=== PATIENT | female | born 1960 | race Caucasian/White ===

== ENCOUNTER 2018-04-14 14:12 | Outpatient (CLI) | payer MEDICAID ==
[2018-04-14] MEDS ORDERED: fentaNYL 100 MCG/2 ML INJ ONE (15:13)
[2018-04-14] MEDS ORDERED: FLUMAZENIL 0.5 MG/5 ML MDV IVP ONE (15:13)
[2018-04-14] MEDS ORDERED: MIDAZOLAM 2 MG/2 ML VIAL ONE (15:13)
[2018-04-14] MEDS ORDERED: NALOXONE HCL 0.4 MG/ML INJ ONE (15:13)
[2018-04-14] MEDS ORDERED: fentaNYL 100 MCG/2 ML INJ IVP PRN (15:16)
[2018-04-14] MEDS ORDERED: MIDAZOLAM 2 MG/2 ML VIAL IVP PRN (15:16)
[2018-04-14] MEDS ORDERED: FLUMAZENIL 0.5 MG/5 ML MDV IVP PRN (15:16)
[2018-04-14] MEDS ORDERED: NALOXONE HCL 0.4 MG/ML INJ IVP PRN (15:16)
--- NOTE | 2018-04-14 15:27 | PDPROPOC ---
Sedation Plan of Care Sedation Plan of Care: vital signs stable, mental status noted, patient educated of risks, benefits, alternatives, patient can tolerate sedation ASA Classification: ASA 2 Planned drugs: fentanyl, midazolam Mallampati Score: Class 1 Mallampati Reference Image: Patient passed 3-3-2 rule?: Yes
--- NOTE | 2018-04-14 15:29 | PDGENHP ---
History & Physical Chief Complaint: NEEDS UPPER EXTREMITY MRI History of Present Illness: PAIN, CLAUSTROPHOBIA. Pertinent Past, Social, Family History: [place] BACK OF THROAT, HYSTERECTOMY, KATLYN ATTACKS. Relevant Physical Exam: NO DISCOMFORT. HARD OF HEARING. Cardiorespiratory Assessment: RRR, CTA.
[2018-04-14] MEDS ORDERED: NS 1,000 ML IV SCH (15:30)
[2018-04-14] MEDS ORDERED: ACETAMINOPHEN 325 MG TAB PO PRN (16:42)
[2018-04-14] MEDS ORDERED: ONDANSETRON 4 MG/2 ML VIAL IVP PRN (16:42)
[2018-04-14 17:08] VITALS: BP 98/60
== END 2018-04-14 17:03 | disposition home or self-care (01) ==
LOC: FIMAGING 14:12
PROVIDERS: ATTEND Nurse Practitioner
DX: M75.02 Adhesive capsulitis of left shoulder (principal); F41.9 Anxiety disorder, unspecified; M75.52 Bursitis of left shoulder
CPT/HCPCS: J2250; J2310; J3010